=== PATIENT | female | born 1985 | race American Indian/Alaskan Native ===

== ENCOUNTER 2019-01-12 18:41 | Emergency (ER) | payer SELFPAY ==
--- NOTE | 2019-01-12 18:50 | Event Note ---
ED Screening Note Date of service: 01/12/19 Time: 18:47 ED Screening Note: This is a 33 y.o. F. that presents to the ER with vaginal bleeding for 2 months and pain to right thigh. 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 This initial assessment/diagnostic orders/clinical plan/treatment(s) is/are subject to change based on patients health status, clinical progression and re- assessment by fellow clinical providers in the ED. Further treatment and workup at subsequent clinical providers discretion. Patient/guardian urged not to elope from the ED as their condition may be serious if not clinically assessed and managed. Initial orders include: Labs and duplex doppler of RLE
[2019-01-12 19:35] LABS: Basophils # (Auto) 0.1 K/mm3 (0.0-0.1); Basophils % (Auto) 0.8 % (0.0-1.8); Eosinophils # (Auto) 0.1 K/mm3 (0.0-0.4); Eosinophils % (Auto) 1.6 % (0.0-4.3); Hematocrit 36.9 % (30.3-42.9); Hemoglobin 12.1 gm/dl (10.1-14.3); Lymphocytes # (Auto) 2.5 K/mm3 (1.2-5.4); Lymphocytes % (Auto) 34.2 % (13.4-35.0); Mean Corpuscular HGB Conc 33 % (30-34); Mean Corpuscular Volume 87 fl (79-97); Monocytes # (Auto) 0.4 K/mm3 (0.0-0.8); Monocytes % (Auto) 5.5 % (0.0-7.3); Platelet Count 251 K/mm3 (140-440); Red Blood Count 4.26 M/mm3 (3.65-5.03)
[2019-01-12 21:31] LABS: HCG Qualitative,Urine Negative (Negative)
[2019-01-12 21:37] LABS: Color,Urine Yellow (Yellow)
[2019-01-12 21:38] LABS: Bilirubin,Urine Negative (Negative); Blood,Urine Moderate (Negative); Urobilinogen,Urine < 2.0 mg/dL (<2.0)
[2019-01-12 21:39] LABS: RBC,Urine > 182.0 /HPF (0.0-6.0)
--- NOTE | 2019-01-12 21:46 | Vascular Lab Report ---
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 TECHNIQUE: Duplex doppler imaging was performed through the veins of the right lower extremity using venous comp ression and other maneuvers. COMPARISON: None available. FINDINGS: Common femoral vein: Negative. Superficial femoral vein: Negative. Popliteal vein: Negative. Calf veins: Negative. Additional findings: None. IMPRESSION: 1. No sonographic evidence for DVT in the right lower extremity. Signer Name: Shravan Schafer MD Signed: 01/12/2019 9:42 PM Workstation Name: [id number]
--- NOTE | 2019-01-12 22:19 | Emergency Department Report ---
ED General Adult HPI - General Chief complaint: Vaginal Bleeding Stated complaint: VAG BLEEDING X2 MTHS/HEART RATE ELEVATED/WEAKNESS Time Seen by Provider: 01/12/19 18:47 Source: patient Mode of arrival: Ambulatory Limitations: No Limitations - History of Present Illness Initial comments: Patient is a 33-year-old -[place] female with no past medical history who presents to the ED with complaint of acute onset persistent heavy vaginal bleeding for the last 2 months, low back pain, and right lower leg pain for the last 2 weeks. 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 Patient denies shortness of breath, dizziness, fever, chills, nausea, vomiting, abdominal pain, syncope, numbness and tingling of lower extremities bilaterally or dysuria, chest pain or cough. MD Complaint: Heavy vaginal bleeding; low back pain right leg pain -: Gradual, month(s) (2) Location: back, abdomen, genitals Radiation: non-radiation Severity scale (0 -10): 6 Quality: aching, dull Consistency: constant Improves with: none Worsens with: none Associated Symptoms: denies other symptoms, nausea/vomiting. denies: confusion, chest pain, cough, diaphoresis, fever/chills, headaches, loss of appetite, malaise, rash, shortness of breath, syncope, weakness Treatments Prior to Arrival: NSAID - Related Data Previous Rx's Medication Instructions Recorded Last Taken Type Naproxen [Naprosyn] 500 mg PO Q12H PRN #20 tablet 01/12/19 Unknown Rx Ondansetron [Zofran Odt] 4 mg PO Q6HR PRN #15 tab.rapdis 01/12/19 Unknown Rx Prednisone [predniSONE 10 mg 10 mg PO .TAPER #1 tab.ds.pk 01/12/19 Unknown Rx (6-Day Pack, 21 Tabs)] cephALEXin [Keflex] 500 mg PO Q6HR #40 cap 01/12/19 Unknown Rx medroxyPROGESTERone ACETATE 10 mg PO DAILY #10 tablet 01/12/19 Unknown Rx [Medroxyprogesterone Acetate] Allergies Allergy/AdvReac Type Severity Reaction Status Date / Time No Known Allergies Allergy Verified 01/12/19 18:48 ED Review of Systems ROS: Stated complaint: VAG BLEEDING X2 MTHS/HEART RATE ELEVATED/WEAKNESS Other details as noted in HPI Constitutional: denies: chills, fever Eyes: denies: eye pain, eye discharge, vision change ENT: denies: ear pain, throat pain Respiratory: denies: cough, shortness of breath, wheezing Cardiovascular: denies: chest pain, palpitations Endocrine: no symptoms reported Gastrointestinal: denies: abdominal pain, nausea, diarrhea Genitourinary: dysuria, abnormal menses (vaginal bleeding). denies: urgency, discharge Musculoskeletal: back pain, arthralgia (left lower leg pain). denies: joint swelling Skin: denies: rash, lesions Neurological: denies: headache, weakness, paresthesias Psychiatric: denies: anxiety, depression Hematological/Lymphatic: denies: easy bleeding, easy bruising ED Past Medical Hx - Past Medical History Previous Medical History?: Yes Additional medical history: PCOS. pinched nerve - Surgical History Past Surgical History?: No - Social History Smoking Status: Never Smoker Substance Use Type: None - Medications Home Medications: Home Medications Medication Instructions Recorded Confirmed Last Taken Type Naproxen [Naprosyn] 500 mg PO Q12H PRN #20 tablet 01/12/19 Unknown Rx Ondansetron [Zofran Odt] 4 mg PO Q6HR PRN #15 tab.rapdis 01/12/19 Unknown Rx Prednisone [predniSONE 10 mg 10 mg PO .TAPER #1 tab.ds.pk 01/12/19 Unknown Rx (6-Day Pack, 21 Tabs)] cephALEXin [Keflex] 500 mg PO Q6HR #40 cap 01/12/19 Unknown Rx medroxyPROGESTERone ACETATE 10 mg PO DAILY #10 tablet 01/12/19 Unknown Rx [Medroxyprogesterone Acetate] ED Physical Exam - General Limitations: No Limitations General appearance: alert, in no apparent distress - Head Head exam: Present: atraumatic, normocephalic, normal inspection - Eye Eye exam: Present: normal appearance, PERRL, EOMI Pupils: Present: normal accommodation - ENT ENT exam: Present: normal exam, normal orophraynx, mucous membranes moist, TM's normal bilaterally, normal external ear exam - Neck Neck exam: Present: normal inspection, full ROM - Respiratory Respiratory exam: Present: normal lung sounds bilaterally. Absent: respiratory distress, wheezes, rales, chest wall tenderness, accessory muscle use, decreased breath sounds - Cardiovascular Cardiovascular Exam: Present: normal rhythm, tachycardia, normal heart sounds. Absent: systolic murmur, diastolic murmur, rubs, gallop - GI/Abdominal GI/Abdominal exam: Present: soft, normal bowel sounds. Absent: tenderness, rebound, hyperactive bowel sounds, hypoactive bowel sounds - Bi-manual exam: Present: other (Patient declined pelvic exam) - Extremities Exam Extremities exam: Present: normal inspection, full ROM, tenderness (left lower leg palpable tenderness), normal capillary refill - Back Exam Back exam: Present: normal inspection, full ROM, tenderness (palpable lumbosacral paraspinal musculoskeletal tenderness), muscle spasm, paraspinal tenderness - Neurological Exam Neurological exam: Present: alert, oriented X3, CN II-XII intact, normal gait, reflexes normal - Psychiatric Psychiatric exam: Present: normal affect, normal mood - Skin Skin exam: Present: warm, dry, intact, normal color. Absent: rash ED Course Vital Signs 01/12/19 18:46 Temperature 98.7 F Pulse Rate 101 H Respiratory 16 Rate Blood Pressure 163/99 O2 Sat by Pulse 97 Oximetry - Reevaluation(s) Reevaluation #1: 01/12/19 22:21 This is a 33-year-old female who presented to the ED with low back pain, heavy vaginal bleeding for 2 months, dysuria and right lower leg pain for 2 weeks. The ED, patient is alert and oriented 3 and is not in distress but slightly tachycardic in triage. Lab test results are reviewed and are unremarkable and non-actionable except for significant urinary tract infection. Right lower leg Doppler ultrasound shows no evidence of DVT. Patient was discharged home on stephanie n medications and antibiotics and advised follow-up with [employer] physician in 7- 10 days for reevaluation or return to the ED immediately if symptoms get worse. ED Medical Decision Making - Lab Data Result diagrams: 01/12/19 19:12 - Radiology Data Radiology results: report reviewed, image reviewed Right lower leg Doppler ultrasound shows no evidence of DVT. - Medical Decision Making This is a 33-year-old female who presented to the ED with low back pain, heavy vaginal bleeding for 2 months, dysuria and right lower leg pain for 2 weeks. The ED, patient is alert and oriented 3 and is not in distress but slightly tachycardic in triage. Lab test results are reviewed and are unremarkable and non-actionable except for significant urinary tract infection. Right lower leg Doppler ultrasound shows no evidence of DVT. Patient was discharged home on pain medications and antibiotics and advised follow-up with [employer] physician in 7-10 days for reevaluation or return to the ED immediately if symptoms get worse. - Differential Diagnosis DVT; Dysfunctional uterine bleeding; Acute UTI; Muscle spasm; leg spasm Critical care attestation.: If time is entered above; I have spent that time in minutes in the direct care of this critically ill patient, excluding procedure time. ED Disposition Clinical Impression: Acute urinary tract infection, Dysfunctional uterine hemorrhage, Spasm of muscle of lower back Muscle strain of right lower extremity Qualifiers: Encounter type: initial encounter Qualified Code(s): S86.911A - Strain of unspecified muscle(s) and tendon(s) at lower leg level, right leg, initial encounter Disposition: TO HOME OR SELFCARE Is pt being admited?: No Does the pt Need Aspirin: No Condition: Stable Instructions: Muscle Strain (ED), Menstruation (ED), Urinary Tract Infection in Women (ED), Muscle Spasm (ED) Additional Instructions: Take medications with food, drink plenty of fluids and follow-up with your primary care physician in 7-10 days for reevaluation. Return to the ED immediately if symptoms get worse. Prescriptions: cephALEXin [Keflex] 500 mg PO Q6HR #40 cap medroxyPROGESTERone ACETATE [Medroxyprogesterone Acetate] 10 mg PO DAILY #10 tablet Naproxen [Naprosyn] 500 mg PO Q12H PRN #20 tablet PRN Reason: Pain , Severe (7-10) Prednisone [predniSONE 10 mg (6-Day Pack, 21 Tabs)] 10 mg PO .TAPER #1 tab.ds.pk Ondansetron [Zofran Odt] 4 mg PO Q6HR PRN #15 tab.rapdis PRN Reason: Nausea Referrals: ZI STEELE MD [Primary Care Provider] - 3-5 Days Time of Disposition: 22:16 Print Language: ARMENIAN
[2019-01-12 22:42] VITALS: BP 150/88
== END 2019-01-12 22:41 | disposition home or self-care (01) ==
LOC: ED 18:41
DX: S86.911A Strain of unspecified muscle(s) and tendon(s) at lower leg level, right leg, initial encounter (principal); N39.0 Urinary tract infection, site not specified; N93.8 Other specified abnormal uterine and vaginal bleeding; M62.830 Muscle spasm of back; E28.2 Polycystic ovarian syndrome; Z79.899 Other long term (current) drug therapy; X58.XXXA Exposure to other specified factors, initial encounter; Y93.89 Activity, other specified; Y92.89 Other specified places as the place of occurrence of the external cause; Y99.8 Other external cause status
CPT/HCPCS: 36415; 81001; 81025; 85025; 87086